=== PATIENT | female | born 1955 | race Caucasian/White ===

== ENCOUNTER 2019-09-14 13:38 | Day surgery (SDC) | payer BC ==
[2019-09-09 13:41] LABS: BASOPHILS # (AUTO) 0.1 X10'3 (0-0.2); EOSINOPHILS # (AUTO) 0.2 X10'3 (0-0.9); EOSINOPHILS % (AUTO) 2.7 % (0-6); HEMATOCRIT 44.8 % (35.0-45.0); HEMOGLOBIN 15.1 g/dl (12.0-16.0); LYMPHOCYTES # (AUTO) 2.2 X10'3 (1.1-4.8); LYMPHOCYTES % (AUTO) 26.1 % (21-51); MEAN CORPUSCULAR HGB CONC 33.7 g/dL (33.0-36.5); MEAN PLATELET VOLUME 8.1 FL (7.4-10.4); MONOCYTES # (AUTO) 0.8 X10'3 (0-0.9); MONOCYTES % (AUTO) 9.6 % (2-12); NEUTROPHILS # (AUTO) 5.2 X10'3 (1.8-7.7); NEUTROPHILS % (AUTO) 60.6 % (42-75); PLATELET COUNT 266 X10'3 (140-440); RED BLOOD COUNT 4.57 X10'6 (4.20-5.60); RED CELL DISTRIBUTION WIDTH 12.9 % (11.5-14.5); WHITE BLOOD COUNT 8.5 X10'3 (4.5-11.0)
[2019-09-09 13:55] LABS: ALBUMIN 3.7 G/DL (3.4-5.0); ANION GAP 7 (8-16); BLOOD UREA NITROGEN 13 MG/DL (7-18); BUN/CREATININE RATIO 17.1 (6.6-38.0); CALCIUM 9.7 MG/DL (8.5-10.1); CHLORIDE 102 MMOL/L (99-107); CREATININE 0.76 MG/DL (0.40-0.90); GLUCOSE 207 MG/DL (70-104); PARTIAL THROMBOPLASTIN TIME 27 SECONDS (22-32); POTASSIUM 3.9 MMOL/L (3.5-5.1); SODIUM 139 MMOL/L (135-145); TOTAL CARBON DIOXIDE 30.5 MMOL/L (24-32); eGFR 77 ML/MIN
[~2019-09-14] VITALS: Ht 165.1 cm; Wt 123.9 kg
[2019-09-14] VITALS (8 sets, daily range): BP systolic 107–157; BP diastolic 50–88
[~2019-09-14 13:38] MED LIST: ASPI-1264 PO; DICL50TA6 PO; HYDR-3972 PO; LISI10TA4 PO; VARE0.5T PO; WALKERFR; [UNRECOGNIZED DRUG - OTHER]
[2019-09-14] MEDS ORDERED: LORazepam 0.5 MG tablet PO PRN ×2 (14:05→14:50)
[2019-09-14] MEDS ORDERED: diphenhydrAMINE 25mg capsule PO PRN ×2 (14:05→14:50)
[2019-09-14] MEDS ORDERED: LIDOcaine/PRILOcaine 5gm cream TP ONE ×2 (14:05→14:50)
[2019-09-14] MEDS ORDERED: normal saline 1,000 ML IV SCH ×2 (14:05→14:50)
[2019-09-14] MEDS ORDERED: LISI40TA4 PO (14:50)
[2019-09-14] MEDS ORDERED: CITA20TA28 PO (14:51)
[2019-09-14] MEDS ORDERED: ESZO3TAB37 PO (14:52)
[2019-09-14] MEDS ORDERED: HOME OXYGEN (14:54)
[2019-09-14] MEDS ORDERED: HYDR12.55 PO (14:55)
[2019-09-14] MEDS ORDERED: TIOT18CA3 INH (15:00)
[2019-09-14] MEDS ORDERED: iohexol 350MG/ML 100ml bottle IV ONE ×2 (16:26→17:51)
[2019-09-14] MEDS ORDERED: fentaNYL/PF 50MCG/1 ML 2ML syringe ONE ×3 (16:26→17:49)
[2019-09-14] MEDS ORDERED: midazolam 2 mg/2 ml injection ONE ×3 (16:26→17:49)
[2019-09-14] MEDS ORDERED: LIDOcaine 1% (10mg/ml)w/preservative injection 20ml MDV ONE (16:26)
[2019-09-14] MEDS ORDERED: nitroGLYCERIN-Tridil 50MG/D5W 250 ML IV ONE (16:54)
[2019-09-14] MEDS ORDERED: heparin 1,000unit/ml 10ml vial 10 ML ONE (16:55)
[2019-09-14] MEDS ORDERED: verapamil 2.5 mg/ml inj IV ONE (16:55)
[2019-09-14] MEDS ORDERED: proCHLORperazine 10 MG/2 ml inj ONE (17:25)
[2019-09-14 17:36] LABS: ISTAT HGB ART 14.3 g/dl (12.0-16.0); ISTAT Hct ART 42 %PCV (35-48); ISTAT O2 SATURATION ARTERIAL 89 % (95-98); ISTAT SOURCE ART
[2019-09-14 17:36] LABS: ISTAT Hct MIX 42 %PCV (35-48); ISTAT O2 SATURATION MIX VENOUS 67 % (60-80); ISTAT SOURCE MIX
[2019-09-14 18:35] LABS: ISTAT Hct MIX 43 %PCV (35-48); ISTAT O2 SATURATION MIX VENOUS 57 % (60-80); ISTAT SOURCE MIX
[2019-09-14] MEDS ORDERED: proCHLORperazine 10 MG/2 ml inj IV PRN (18:55)
[2019-09-14] MEDS ORDERED: HYDROcodone/acetaminophen 5mg/325mg tablet PO PRN (18:55)
[2019-09-14] MEDS ORDERED: HYDROcodone/acetaminophen 10/325mg tab PO PRN (18:55)
[2019-09-14] MEDS ORDERED: OXAZEpam 15mg capsule PO PRN (18:55)
[2019-09-14] MEDS ORDERED: ondansetron/PF 4mg/2ml inj IV PRN (18:55)
--- NOTE | 2019-09-14 20:31 | NUR ---
VASCULAR BAND REMOVED, CLEANSED WITH STERILE 4X4 AND GAUZE. STERILE 2X2 AND TEGADERM APPLIED. SUPPORT DRSG OF FOLDED 4X4S AND COBAN APPLIED ON TOP. PT AWARE SHE MAY REMOVE BAND NEEDED AND FOR COMFORT, DRSG UNDER SHOULD STAY FOR 24 HOURS. Addendum: 09/14/19 at 2036 by Moni Pickett RN Amended: Links added.
== END 2019-09-14 20:55 | disposition home or self-care (01) ==
LOC: SSTAY O 13:38
PROVIDERS: ATTEND Internal Medicine Interventional Cardiology
DX: R06.02 Shortness of breath (principal); I25.10 Atherosclerotic heart disease of native coronary artery without angina pectoris; G47.33 Obstructive sleep apnea (adult) (pediatric); I10 Essential (primary) hypertension; I35.0 Nonrheumatic aortic (valve) stenosis; E78.5 Hyperlipidemia, unspecified; F17.211 Nicotine dependence, cigarettes, in remission; Z79.899 Other long term (current) drug therapy
CPT/HCPCS: 36415; 80048; 82803; 85014; 85025; 85610; 85730; 93005; 93460; 99152; 99153; C1769; C1894; J0780; J1644; J2001; J2250; J3010; J7030; Q0163; Q9967; A4620; A5120; A6258; J3490